=== PATIENT | male | born 1990 | race Caucasian/White ===

== ENCOUNTER 2018-05-20 16:49 | Observation (INO) | payer MEDICAID ==
[2018-05-20] MEDS: LIDOCAINE 1% (MDV) 20 ML INJ SC (18:13)
[2018-05-20 19:36] LABS: WHITE BLOOD COUNT 10.6 10^3/ul (4.8-10.8)
[2018-05-20 19:36] LABS: ADD MAN DIFF? NO; BASOPHILS % 0.4 % (0.0-2.0); EOSINOPHILS # 0.1 10^3/ul (0.0-0.5); EOSINOPHILS % 0.6 % (0.0-7.0); HEMOGLOBIN 15.9 g/dl (14.0-18.0); MEAN CORPUSCULAR HEMOGLOBIN 29.8 pg (29.0-33.0); MEAN CORPUSCULAR HGB CONC 35.3 g/dl (32.0-37.0); MEAN CORPUSCULAR VOLUME 84.3 fl (82.0-101.0); MEAN PLATELET VOLUME 9.9 fl (7.4-10.4); MONOCYTE # 0.9 10^3/ul (0.3-0.9); MONOCYTES % 8.5 % (0.0-11.0); NEUTROPHIL # 6.6 10^3/ul (1.6-7.5); NEUTROPHILS % 62.2 % (39.0-77.0); PLATELET COUNT 268 10^3/UL (140-415); RED BLOOD COUNT 5.34 10^6/ul (4.70-6.10); RED CELL DISTRIBUTION WIDTH 11.9 % (11.5-14.5)
[2018-05-20 19:56] LABS: ANION GAP 9 (5-13); BLOOD UREA NITROGEN 15 mg/dl (7-20); CALCIUM 9.9 mg/dl (8.4-10.2); CARBON DIOXIDE 29 mmol/L (21-31); CHLORIDE 104 mmol/L (97-110); CREATININE 0.94 mg/dl (0.61-1.24); Estimated GFR > 60 mL/min (>60); GLUCOSE 85 mg/dl (70-220); POTASSIUM 3.9 mmol/L (3.5-5.1); SODIUM 142 mmol/L (135-144)
[2018-05-20] MEDS: ERTAPENEM SODIUM 1 GM in SOD CHLORIDE 0.9% 100 ML IVPB (20:23)
[2018-05-20] MEDS: SOD CHLORIDE 0.9% 100 ML (20:47)
[2018-05-20] MEDS: IOHEXOL 300MG/ML 150 ML BTL (20:48)
[2018-05-20] MEDS ORDERED: ONDANSETRON 4 MG INJ IV (23:00)
[2018-05-20] MEDS ORDERED: ACETAMINOPHEN 325 MG TAB PO ×2 (23:00)
[2018-05-20] MEDS ORDERED: NACL 0.9% 3 ML SYG IV (23:00)
[2018-05-20] MEDS ORDERED: ONDANSETRON 4 MG TAB PO (23:00)
[2018-05-21] MEDS: PIPER-TAZO 2.25 GM (PMX) 50 ML IVPB ×5 (01:41→23:51)
[2018-05-21] MEDS: SOD CHLORIDE 0.9% 1,000 ML IV ×2 (01:42→16:40)
[2018-05-21 05:14] LABS: ADD MAN DIFF? NO
[2018-05-21 05:17] LABS: BASOPHILS % 0.3 % (0.0-2.0); EOSINOPHILS # 0.1 10^3/ul (0.0-0.5); EOSINOPHILS % 1.2 % (0.0-7.0); HEMATOCRIT 42.6 % (42.0-52.0); HEMOGLOBIN 14.9 g/dl (14.0-18.0); LYMPHOCYTES # 3.3 10^3/ul (0.8-2.9); MEAN CORPUSCULAR HEMOGLOBIN 29.4 pg (29.0-33.0); MEAN CORPUSCULAR VOLUME 84.2 fl (82.0-101.0); MEAN PLATELET VOLUME 10.2 fl (7.4-10.4); MONOCYTES % 9.8 % (0.0-11.0); NEUTROPHIL # 5.6 10^3/ul (1.6-7.5); NEUTROPHILS % 55.4 % (39.0-77.0); PLATELET COUNT 249 10^3/UL (140-415); RED BLOOD COUNT 5.06 10^6/ul (4.70-6.10); RED CELL DISTRIBUTION WIDTH 11.9 % (11.5-14.5)
[2018-05-21 05:17] LABS: WHITE BLOOD COUNT 10.1 10^3/ul (4.8-10.8)
[2018-05-21 06:20] LABS: ALANINE AMINOTRANSFERASE 82 IU/L (13-69); ALBUMIN 4.2 g/dl (3.3-4.9); ALBUMIN/GLOBULIN RATIO 1.55; ALKALINE PHOSPHATASE 53 IU/L (42-121); ANION GAP 10 (5-13); ASPARTATE AMINO TRANSFERASE 34 IU/L (15-46); BILIRUBIN,INDIRECT 1.7 mg/dl (0-1.1); BILIRUBIN,TOTAL 1.7 mg/dl (0.2-1.3); BLOOD UREA NITROGEN 14 mg/dl (7-20); CALCIUM 9.6 mg/dl (8.4-10.2); CARBON DIOXIDE 30 mmol/L (21-31); CHLORIDE 102 mmol/L (97-110); CHOL/HDL RATIO 6.5 RATIO; CHOLESTEROL 177 mg/dl (100-200); Estimated GFR > 60 mL/min (>60); GLUCOSE 97 mg/dl (70-220); HDL CHOLESTEROL 27 mg/dl (30-63); LDL CHOLESTEROL,CALCULATED 111 mg/dl; MAGNESIUM 2.1 mg/dl (1.7-2.5); POTASSIUM 3.6 mmol/L (3.5-5.1); SODIUM 142 mmol/L (135-144); TOTAL PROTEIN 6.9 g/dl (6.1-8.1); TRIGLYCERIDES 194 mg/dl (0-149)
[2018-05-21] MEDS: HYDROCODONE/APAP (5/325) TAB PO (06:33)
[2018-05-21] MEDS ORDERED: MEPERIDINE 25 MG INJ IV (15:00)
[2018-05-21] MEDS ORDERED: hydrALAzine 20 MG INJ IV (15:00)
[2018-05-21] MEDS ORDERED: HYDROmorphONE 1 MG/5 ML IV SYRINGE IV ×3 (15:00)
[2018-05-21] MEDS ORDERED: FENTAnyl 50 MCG/ML VIAL IV ×3 (15:00)
[2018-05-21] MEDS ORDERED: LABETALOL HCL 20MG INJ IV (15:00)
[2018-05-21] MEDS ORDERED: PROCHLORPERAZINE 10 MG INJ IV (15:00)
[2018-05-21] MEDS ORDERED: DIPHENHYDRAMINE 50 MG INJ IV (15:00)
[2018-05-21] MEDS ORDERED: ONDANSETRON 4 MG INJ IV (15:00)
[2018-05-21] MEDS ORDERED: MIDAZOLAM 1 MG/ML 2 ML INJ (15:55)
[2018-05-21] MEDS ORDERED: FENTAnyl 50 MCG/ML VIAL (15:55)
[2018-05-21] MEDS ORDERED: LIDOCAINE 2% (SDV) 5 ML INJ (15:55)
[2018-05-21] MEDS ORDERED: PROPOFOL 20 ML ×2 (15:55→16:04)
[2018-05-21] MEDS ORDERED: ONDANSETRON 4 MG INJ (16:09)
[2018-05-21] MEDS ORDERED: DEXAMETHASONE 4 MG/ML 5 ML INJ (16:09)
[2018-05-21] MEDS ORDERED: FAMOTIDINE 20 MG INJ (16:09)
[2018-05-21] MEDS ORDERED: CEFAZOLIN 1 GM INJ (16:16)
[2018-05-21] MEDS ORDERED: HYDROmorphONE 2 MG/ML SYG (16:20)
[2018-05-21] MEDS: LIDOCAINE 1% (MPF) 30 ML INJ (16:26)
[2018-05-21] MEDS: BUPIVACAINE 0.5%/EPI (SDV) 30 ML INJ (16:26)
[2018-05-21] MEDS ORDERED: ACETAMINOPHEN 325 MG TAB PO (17:00)
[2018-05-21] MEDS ORDERED: HYDROCODONE/APAP (5/325) TAB PO (17:00)
[2018-05-21] MEDS ORDERED: IBUPROFEN 600 MG TAB PO (17:00)
[2018-05-22] MEDS: PIPER-TAZO 2.25 GM (PMX) 50 ML IVPB ×2 (05:30→12:28)
[2018-05-22] MEDS: SOD CHLORIDE 0.9% 1,000 ML IV (09:20)
[2018-05-22 12:12] LABS: HIV 1&2 ANTIBODY NEGATIVE (NEGATIVE)
== END 2018-05-22 18:28 | disposition home or self-care (01) ==
LOC: MS1 22:42 → FTE 16:49
DX: L02.215 Cutaneous abscess of perineum (principal); K64.9 Unspecified hemorrhoids
CPT/HCPCS: 10060; 36415; 74177; 80048; 80053; 80061; 83036; 83735; 84443; 85025; 86703; 87070; 87075; 87102; 96365; 99285-25